=== PATIENT | female | born 1985 | race American Indian/Alaskan Native ===

== ENCOUNTER 2018-10-03 16:56 | Emergency (ER) | payer MEDICAID ==
[2018-10-03 17:41] VITALS: BP 122/84
[2018-10-03] MEDS ORDERED: TYLENOL/CODEINE PO ONE (17:42)
[2018-10-03] MEDS ORDERED: AUGMENTIN 875 MG PO ONE (17:42)
--- NOTE | 2018-10-03 17:46 | Emergency Department Report ---
ED ENT HPI - General Chief complaint: Dental/Oral Stated complaint: TOOTHACHE/JAW SWOLLEN Time Seen by Provider: 10/03/18 17:38 Source: patient Mode of arrival: Ambulatory Limitations: No Limitations - History of Present Illness Initial comments: The patient is a 33 year-old female who presents to ED complaining of 10 pain in the right side of his mouth x 5 days . Patient states that the pain started 5 days ago and has increased in severity over the last 2-3 days. The pain is exacerbated by eating and opening of the mouth. Patient states that it radiates towards ear. Patient describes a as a throbbing, pressure-like sensation. Patient states otherwise well and has no other complaints. Patient has had no fevers and no chills. No chest pain, no shortness of breath. No abdominal pain. No shortness of breath or recent trauma to the face. MD complaint: tooth pain - Related Data Previous Rx's Medication Instructions Recorded Last Taken Type Amoxicillin 500 mg PO TID #30 capsule 08/03/18 Unknown Rx Amoxicillin/K Clav Tab [Augmentin 1 each PO BID #20 tablet 10/03/18 Unknown Rx 875MG TAB] Chlorhexidine Mouthwash [Peridex] 15 ml MM BID #1 bottle 10/03/18 Unknown Rx Ibuprofen 800 mg PO TID PRN #30 tablet 10/03/18 Unknown Rx Allergies Allergy/AdvReac Type Severity Reaction Status Date / Time No Known Allergies Allergy Verified 10/03/18 17:39 ED Dental HPI - General Chief complaint: Dental/Oral Stated complaint: TOOTHACHE/JAW SWOLLEN Time Seen by Provider: 10/03/18 17:38 Source: patient Mode of arrival: Ambulatory Limitations: No Limitations - Related Data Previous Rx's Medication Instructions Recorded Last Taken Type Amoxicillin 500 mg PO TID #30 capsule 08/03/18 Unknown Rx Amoxicillin/K Clav Tab [Augmentin 1 each PO BID #20 tablet 10/03/18 Unknown Rx 875MG TAB] Chlorhexidine Mouthwash [Peridex] 15 ml MM BID #1 bottle 10/03/18 Unknown Rx Ibuprofen 800 mg PO TID PRN #30 tablet 10/03/18 Unknown Rx Allergies Allergy/AdvReac Type Severity Reaction Status Date / Time No Known Allergies Allergy Verified 10/03/18 17:39 ED Review of Systems ROS: Stated complaint: TOOTHACHE/JAW SWOLLEN Other details as noted in HPI Comment: All other systems reviewed and negative ED Past Medical Hx - Past Medical History Previous Medical History?: No - Surgical History Past Surgical History?: No - Social History Smoking Status: Never Smoker Substance Use Type: Marijuana - Medications Home Medications: Home Medications Medication Instructions Recorded Confirmed Last Taken Type Amoxicillin 500 mg PO TID #30 capsule 08/03/18 Unknown Rx Amoxicillin/K Clav Tab [Augmentin 1 each PO BID #20 tablet 10/03/18 Unknown Rx 875MG TAB] Chlorhexidine Mouthwash [Peridex] 15 ml MM BID #1 bottle 10/03/18 Unknown Rx Ibuprofen 800 mg PO TID PRN #30 tablet 10/03/18 Unknown Rx ED Physical Exam - General Limitations: No Limitations General appearance: alert, in no apparent distress - Head Head exam: Present: atraumatic, normocephalic - Eye Eye exam: Present: normal appearance - ENT ENT exam: Present: mucous membranes moist - Expanded ENT Exam Expanded Mouth exam: Present: normal external inspection, other (swelling to right jaw) Teeth exam: Present: dental caries, dental tenderness # (4 and 5), gingival enlargement Throat exam: Positive: normal inspection - Neck Neck exam: Present: normal inspection - Respiratory Respiratory exam: Present: normal lung sounds bilaterally. Absent: respiratory distress - Cardiovascular Cardiovascular Exam: Present: regular rate, normal rhythm. Absent: systolic murmur, diastolic murmur, rubs, gallop - GI/Abdominal GI/Abdominal exam: Present: soft, normal bowel sounds - Extremities Exam Extremities exam: Present: normal inspection - Back Exam Back exam: Present: normal inspection - Neurological Exam Neurological exam: Present: alert, oriented X3 - Psychiatric Psychiatric exam: Present: normal affect, normal mood - Skin Skin exam: Present: warm, dry, intact, normal color. Absent: rash ED Course Vital Signs 10/03/18 17:39 Temperature 100.1 F H Pulse Rate 84 Respiratory 16 Rate Blood Pressure 122/84 O2 Sat by Pulse 99 Oximetry ED Medical Decision Making - Medical Decision Making 33-year-old female who presents with right Facial pain secondary to odontogenic abscess ED course: Patient received 875 mg of Augmentin, Tylenol No. 3. Odontogenic infection and abscess versus ear infection. Based upon history and physical examination, pain is a result of an infection of tooth number 4,5 and that the pain Pt feels on the right side of her face and towards the ear is referred pain from this infectious process. Pt has no evidence of acute impending airway compromise. At this point, patient will be discharged home on some antibiotics and pain trial, she will do well with an outpatient course of antibiotics. Follow up with the Dental Clinic as referred Vital signs are normal patient is in no acute distress. Pt had an effect uneventful ED stay Critical care attestation.: If time is entered above; I have spent that time in minutes in the direct care of this critically ill patient, excluding procedure time. ED Disposition Clinical Impression: Dental abscess, Pain, dental Disposition: DC- TO HOME OR SELFCARE Is pt being admited?: No Does the pt Need Aspirin: No Condition: Stable Instructions: Dental Abscess (ED) Additional Instructions: f/u with Dentist take meds as prescribed Prescriptions: Amoxicillin/K Clav Tab [Augmentin 875MG TAB] 1 each PO BID #20 tablet Chlorhexidine Mouthwash [Peridex] 15 ml MM BID #1 bottle Ibuprofen 800 mg PO TID PRN #30 tablet PRN Reason: pain Referrals: [facility] [Outside] - 3-5 Days [facility] [Outside] - 3-5 Days Forms: Accompanied Note, Work/School Release Form(ED)
== END 2018-10-03 18:36 | disposition home or self-care (01) ==
LOC: ED 16:56
DX: K04.7 Periapical abscess without sinus (principal); F12.10 Cannabis abuse, uncomplicated
CPT/HCPCS: 99282

== ENCOUNTER 2019-01-29 12:30 | Emergency (ER) | payer MEDICAID ==
[2019-01-29 13:42] VITALS: BP 123/87
--- NOTE | 2019-01-29 13:44 | Emergency Department Report ---
Blank Doc - Documentation Documentation: pt presents for left sided dental pain that began a week ago states the swelling began yesterday saw the dentist, need 10 teeth extractions pt was placed on amoxicillin, finished last week supposed to see the dentist again in two weeks no fever no drainage states that it is painful under the jaw
--- NOTE | 2019-01-29 14:16 | Emergency Department Report ---
ED ENT HPI - General Chief complaint: Dental/Oral Stated complaint: (R) SIDE FACE SWELLING/PAIN Time Seen by Provider: 01/29/19 13:39 Source: patient Mode of arrival: Ambulatory Limitations: No Limitations - History of Present Illness Initial comments: Patient is a 33-year-old [place] female who is presenting with facial pain. Patient has 10 teeth that need to be removed and has been on amoxicillin. Patient states the last 3 days her left jaw has began to swell. He is able to handle her secretions and can swallow. Patient states eating is extremely painful. Patient denies any fevers chills, cold congestion nausea vomiting at this time. Patient states pain is aching in nature and is 9 out of 10 in severity. - Related Data Previous Rx's Medication Instructions Recorded Last Taken Type Amoxicillin 500 mg PO TID #30 capsule 08/03/18 Unknown Rx Amoxicillin/K Clav Tab [Augmentin 1 each PO BID #20 tablet 10/03/18 Unknown Rx 875MG TAB] Chlorhexidine Mouthwash [Peridex] 15 ml MM BID #1 bottle 10/03/18 Unknown Rx Ibuprofen [Ibuprofen 800] 800 mg PO TID PRN #30 tablet 10/03/18 Unknown Rx Amoxicillin/Potassium Clav 1 each PO BID #14 tablet 01/29/19 Unknown Rx [Augmentin 875-125 Tablet] Clindamycin [Clindamycin CAP] 300 mg PO Q8H #21 cap 01/29/19 Unknown Rx HYDROcodone/ACETAMINOPHEN 15 ml PO Q6H PRN #150 solution 01/29/19 Unknown Rx [Hydrocodon-Acetamin 7.5-325/15] Allergies Allergy/AdvReac Type Severity Reaction Status Date / Time No Known Allergies Allergy Verified 01/29/19 12:31 ED Dental HPI - General Chief complaint: Dental/Oral Stated complaint: (R) SIDE FACE SWELLING/PAIN Time Seen by Provider: 01/29/19 13:39 Source: patient Mode of arrival: Ambulatory Limitations: No Limitations - Related Data Previous Rx's Medication Instructions Recorded Last Taken Type Amoxicillin 500 mg PO TID #30 capsule 08/03/18 Unknown Rx Amoxicillin/K Clav Tab [Augmentin 1 each PO BID #20 tablet 10/03/18 Unknown Rx 875MG TAB] Chlorhexidine Mouthwash [Peridex] 15 ml MM BID #1 bottle 10/03/18 Unknown Rx Ibuprofen [Ibuprofen 800] 800 mg PO TID PRN #30 tablet 10/03/18 Unknown Rx Amoxicillin/Potassium Clav 1 each PO BID #14 tablet 01/29/19 Unknown Rx [Augmentin 875-125 Tablet] Clindamycin [Clindamycin CAP] 300 mg PO Q8H #21 cap 01/29/19 Unknown Rx HYDROcodone/ACETAMINOPHEN 15 ml PO Q6H PRN #150 solution 01/29/19 Unknown Rx [Hydrocodon-Acetamin 7.5-325/15] Allergies Allergy/AdvReac Type Severity Reaction Status Date / Time No Known Allergies Allergy Verified 01/29/19 12:31 ED Review of Systems ROS: Stated complaint: (R) SIDE FACE SWELLING/PAIN Other details as noted in HPI Comment: All other systems reviewed and negative ED Past Medical Hx - Past Medical History Previous Medical History?: No - Surgical History Past Surgical History?: No - Social History Smoking Status: Never Smoker Substance Use Type: None - Medications Home Medications: Home Medications Medication Instructions Recorded Confirmed Last Taken Type Amoxicillin 500 mg PO TID #30 capsule 08/03/18 Unknown Rx Amoxicillin/K Clav Tab [Augmentin 1 each PO BID #20 tablet 10/03/18 Unknown Rx 875MG TAB] Chlorhexidine Mouthwash [Peridex] 15 ml MM BID #1 bottle 10/03/18 Unknown Rx Ibuprofen [Ibuprofen 800] 800 mg PO TID PRN #30 tablet 10/03/18 Unknown Rx Amoxicillin/Potassium Clav 1 each PO BID #14 tablet 01/29/19 Unknown Rx [Augmentin 875-125 Tablet] Clindamycin [Clindamycin CAP] 300 mg PO Q8H #21 cap 01/29/19 Unknown Rx HYDROcodone/ACETAMINOPHEN 15 ml PO Q6H PRN #150 solution 01/29/19 Unknown Rx [Hydrocodon-Acetamin 7.5-325/15] ED Physical Exam - General Limitations: No Limitations General appearance: alert, in no apparent distress - Head Head exam: Present: atraumatic, normocephalic - Expanded Head Exam Expanded 1 - Patient with facial cellulitis. - Eye Eye exam: Present: normal appearance, PERRL, EOMI - ENT ENT exam: Present: mucous membranes moist - Expanded ENT Exam Expanded Mouth exam: Present: tongue normal. Absent: tongue elevation (patient with no tenderness or swelling in the sublingual space) Teeth exam: Present: dental caries (diffuse) - Neck Neck exam: Present: normal inspection - Respiratory Respiratory exam: Present: normal lung sounds bilaterally. Absent: respiratory distress, wheezes, rales, rhonchi - Cardiovascular Cardiovascular Exam: Present: regular rate, normal rhythm. Absent: systolic murmur, diastolic murmur, rubs, gallop - GI/Abdominal GI/Abdominal exam: Present: soft, normal bowel sounds - Extremities Exam Extremities exam: Present: normal inspection - Back Exam Back exam: Present: normal inspection - Neurological Exam Neurological exam: Present: alert, oriented X3 - Psychiatric Psychiatric exam: Present: normal affect, normal mood - Skin Skin exam: Present: warm, dry, intact, normal color. Absent: rash ED Course Vital Signs 01/29/19 13:39 Temperature 97.9 F Pulse Rate 84 Respiratory 18 Rate Blood Pressure 123/87 O2 Sat by Pulse 100 Oximetry ED Medical Decision Making - Medical Decision Making Patient likely with multiple dental abscesses. Patient is able to handle her secretions in her posterior pharynx is within normal limits. Patient started on pain medications. Patient's significant other states that clindamycin is is not worked well for her in the past. Patient will be double covered with clindamycin and Augmentin. Critical care attestation.: If time is entered above; I have spent that time in minutes in the direct care of this critically ill patient, excluding procedure time. ED Disposition Clinical Impression: Dental abscess, Facial cellulitis Disposition: TO HOME OR SELFCARE Is pt being admited?: No Does the pt Need Aspirin: No Condition: Stable Instructions: Dental Abscess (ED) Time of Disposition: 14:15
== END 2019-01-29 14:23 | disposition home or self-care (01) ==
LOC: ED 12:30
DX: K04.7 Periapical abscess without sinus (principal); L03.211 Cellulitis of face
CPT/HCPCS: 99282